=== PATIENT | female | born 1990 | race Caucasian/White ===

== ENCOUNTER 2018-06-18 13:38 | Emergency (ER) | payer SELFPAY ==
[~2018-06-18] VITALS: Ht 162.6 cm; Wt 65.2 kg
[~2018-06-18 13:38] MED LIST: DIVA125T2 PO; HYDR1TAB14 PO; NAPR-856 PO; PROM25SU34 PO; RIZA5TAB2 PO; VENL25TA PO
[2018-06-18 14:36] LABS: BASOPHILS # (AUTO) 0.02 x10^3/uL (0-0.1); BASOPHILS % (AUTO) 0 % (0-1); EOSINOPHILS % (AUTO) 2 % (1-7); LYMPHOCYTES % (AUTO) 20 % (22-44); MD NO; MEAN CORPUSCULAR HEMOGLOBIN 31.8 pg (27.0-34.8); MEAN CORPUSCULAR HGB CONC 34.4 g/dL (32.4-35.8); MEAN CORPUSCULAR VOLUME 92.3 fL (80-100); MEAN PLATELET VOLUME 10.9 fL (7.4-10.4); MONOCYTES # (AUTO) 0.51 x10^3/uL (0.2-0.8); MONOCYTES % (AUTO) 8 % (2-9); NEUTROPHILS # (AUTO) 4.25 x10^3/uL (1.8-6.8); NEUTROPHILS % (AUTO) 70 % (42-75); PLATELET COUNT 184 x10^3/uL (130-400); RED BLOOD COUNT 4.67 x10^6/uL (3.82-5.3); RED CELL DISTRIBUTION WIDTH 12.7 % (9.6-15.2)
[2018-06-18 14:36] LABS: MICROSCOPIC NOT IND
[2018-06-18 14:46] LABS: ALANINE AMINOTRANSFERASE 16 U/L (12-78); ALBUMIN 4.3 g/dL (3.4-5.0); ANION GAP 8 mmol/L (5-15); CALCIUM 8.9 mg/dL (8.5-10.1); CHLORIDE 109 mmol/L (98-107); CREATININE 0.83 mg/dL (0.55-1.02)
[2018-06-18 14:51] LABS: ALKALINE PHOSPHATASE 89 U/L (45-117); BILIRUBIN,TOTAL 0.3 mg/dL (0.2-1.0); TOTAL PROTEIN 8.1 g/dL (6.4-8.2); TROPONIN I < 0.015 ng/mL (0.000-0.045)
[2018-06-18 14:56] LABS: CULTURE INDICATED? NO
[2018-06-18 15:39] VITALS: BP 117/80
[2018-06-18 16:28] LABS: FREE T4 (FREE THYROXINE) 1.02 ng/dL (0.76-1.46); THYROID STIMULATING HORMONE 1.33 mIU/L (0.358-3.740)
== END 2018-06-18 16:15 | disposition home or self-care (01) ==
LOC: ED 14:47
DX: R07.89 Other chest pain (principal); R00.2 Palpitations; J45.909 Unspecified asthma, uncomplicated
CPT/HCPCS: 36415; 71046; 80053; 81003; 84439; 84443; 84484; 84703; 85025; 87081; 87880; 93005; 99285

== ENCOUNTER 2018-08-12 08:14 | Emergency (ER) | payer OTHER ==
[~2018-08-12] VITALS: Ht 160 cm; Wt 65.0 kg
[2018-08-12] MEDS ORDERED: DULO30CA2 PO (09:40)
[2018-08-12] MEDS ORDERED: HYDROcodone/APAP 5/325 TABLET ONE (09:51)
[2018-08-12] MEDS ORDERED: HYDROcodone/APAP 5/325 TABLET PO ONE (10:00)
[2018-08-12 10:05] LABS: MICROSCOPIC AUTO
[2018-08-12 10:16] LABS: CULTURE INDICATED? NO
[2018-08-12 12:52] VITALS: BP 112/66
== END 2018-08-12 13:04 | disposition home or self-care (01) ==
LOC: ED 10:57
DX: O20.0 Threatened abortion (principal); J45.909 Unspecified asthma, uncomplicated; Z79.899 Other long term (current) drug therapy; Z88.1 Allergy status to other antibiotic agents
CPT/HCPCS: 36415; 76801; 81001; 84702; 86901; 99285

== ENCOUNTER 2018-08-15 21:09 | Emergency (ER) | payer OTHER ==
[~2018-08-15] VITALS: Ht 160 cm; Wt 65.0 kg
[~2018-08-15 21:09] MED LIST changes: +DULO30CA2 PO
[2018-08-15 21:57] LABS: MICROSCOPIC INDICATED
[2018-08-15 22:02] LABS: CULTURE INDICATED? NO
[2018-08-15] MEDS ORDERED: IBUPROFEN 200 MG TABLET PO ONE (22:30)
[2018-08-15] MEDS ORDERED: IBUPROFEN 800 MG TABLET ONE (22:41)
[2018-08-15 22:47] VITALS: BP 106/72
== END 2018-08-15 22:49 | disposition home or self-care (01) ==
LOC: ED 22:40
DX: O20.0 Threatened abortion (principal); G43.909 Migraine, unspecified, not intractable, without status migrainosus; J45.909 Unspecified asthma, uncomplicated; G89.4 Chronic pain syndrome; Z3A.09 9 weeks gestation of pregnancy
CPT/HCPCS: 36415; 81001; 84702; 99284